=== PATIENT | female | born 1965 | race Caucasian/White ===

== ENCOUNTER → 2021-02-25 15:57 | Outpatient (CLI) | payer OTHER, SELFPAY ==
--- NOTE | 2021-02-25 16:10 | XR_ITS ---
PROCEDURE: XR ANKLE RT MIN 3V CLINICAL INDICATION: INJURY OF RT ANKLE,INITIAL ENCOUNTER COMPARISON: No exams were available for comparison FINDINGS: No fracture or dislocation. No lytic or blastic change. There is normal mineralization. The joint spaces are well-preserved. No significant degenerative/arthritic changes. No erosive changes evident. Other findings:There is a prominent os trigonum and a small calcaneal spur IMPRESSION: No acute findings. Dictated by: Jose Santana MD 02/25/2021 17:12 Jose Santana MD in [facility] 02/25/2021 17:12
== END ==
PROVIDERS: PCP Family Medicine; Visit Provider Family Medicine
DX: S99.911A Unspecified injury of right ankle, initial encounter (principal)
CPT/HCPCS: 73610

== ENCOUNTER 2021-04-09 11:28 | Outpatient (RCR) | payer OTHER, SELFPAY | END 2021-04-09 12:47 | disposition home or self-care (01) | LOC: PT 11:28 | PROVIDERS: Visit Provider Orthopaedic Surgery | DX: M25.371 Other instability, right ankle (principal); M20.11 Hallux valgus (acquired), right foot; M20.12 Hallux valgus (acquired), left foot | CPT/HCPCS: 97760 ==

== ENCOUNTER → 2021-05-07 10:02 | Outpatient (CLI) | payer OTHER, SELFPAY ==
--- NOTE | 2021-05-07 10:06 | XR_ITS ---
PROCEDURE: XR FOOT RT MIN 3V CLINICAL INDICATION: BL foot pain COMPARISON: CR XR FOOT LT MIN 3V from 05/07/2021 FINDINGS: Moderate hallux valgus with osteoarthritis of the 1st MTP joint and bunion formation at the distal aspect of the 1st metatarsal. Mild osteoarthritic change talonavicular and tarsal metatarsal junction dorsally at the 1st metatarsal. Small calcaneal spur. Prominent os trigonum versus prominent posterior talar process. IMPRESSION: Hallux valgus with osteoarthritis of the 1st MTP joint and bunion formation at the distal aspect of the 1st metatarsal.. Midfoot osteoarthritic change. Prominent os trigonum versus prominent posterior talar process Dictated by: Jose Santana MD 05/07/2021 17:40 Jose Santana MD in [facility] 05/07/2021 17:40
--- NOTE | 2021-05-07 10:06 | XR_ITS ---
PROCEDURE: XR FOOT LT MIN 3V CLINICAL INDICATION: BL foot injury COMPARISON: No exams were available for comparison FINDINGS: Moderate hallux valgus with mild lateral subluxation of 1st proximal phalanx proximally 3 mm. Prominent distal aspect of the 1st metatarsal with mild osteoarthritic changes at the 1st and 2nd MTP joint. Prominent anterior osteophytes at the 2nd tarsal metatarsal junction anteriorly. IMPRESSION: Hallux valgus with osteoarthritis of the 1st MTP joint and bunion formation at the distal aspect of the 1st metatarsal. Osteoarthritis 2nd MTP joint and 2nd tarsal metatarsal junction. Dictated by: Jose Santana MD 05/07/2021 17:38 Jose Santana MD in [facility] 05/07/2021 17:38
== END ==
LOC: RAD 10:04
PROVIDERS: PCP Family Medicine; Visit Provider Orthopaedic Surgery
DX: M20.11 Hallux valgus (acquired), right foot (principal); M20.12 Hallux valgus (acquired), left foot; M25.371 Other instability, right ankle
CPT/HCPCS: 73630

== ENCOUNTER 2021-05-07 11:31 | Outpatient (RCR) | payer OTHER, SELFPAY | END 2021-05-07 12:20 | disposition home or self-care (01) | LOC: PT 11:31 | PROVIDERS: Visit Provider Orthopaedic Surgery | DX: M25.371 Other instability, right ankle (principal); S99.911D Unspecified injury of right ankle, subsequent encounter | CPT/HCPCS: 97760 ==

== ENCOUNTER 2021-07-06 16:00 | Outpatient (RCR) | payer BC, OTHER, SELFPAY ==
--- NOTE | 2021-05-11 17:17 | [facility].PTOPEV ---
PT Outpatient Evaluation Rehab PT Outpatient Evaluation Start: 05/11/21 16:24 Freq: Status: Active Protocol: Document 05/11/21 16:24 CHRISTA (Rec: 05/11/21 17:17 [email or web address] [id number]) Electronically Signed By Sergio Mello, PT 05/11/21 16:24 Outpatient Therapy Subjective History Subjective History Pt. is a 55 year old female who presents to Outpatient Physical Therapy w/ c/o chronic and constant RLE medial/posterior ankle P!, TTP , ROM deficits, and muscle weakness of traumatic onset since 2020. Pt. reports descending stairs and a snake jumped out at her resulting in her turning her ankle. Recent diagnostic imaging negative for a fx. per pt. report. Pt. denies having injections for current pathology. Pt. reports symptoms worsen w/ moving her ankle, ambulation, standing, and negotiating stairs. Pt. reports having some symptom relief w/ Tylenol. Pt. reports she is off work until RTMD . Pt. also reports her MD wants her to be donned in her ankle brace at all times. Current medications include Tylenol. Pt. denies history of cancer(self), denies pacemaker. Chief Complaint Pain,Stiff,Swelling,Gives out/ Unstable,Weakness Symptom Type Ache,Throb,Sharp,Dull,Burning Symptoms Relieved By Rest/Positioning,Ice,Brace/ Support,OTC Meds Symptoms Aggravated By Standing,Physical Activity, Twisting,Walking,Lifting Prior Functional Limitations None Current Functional Limitations Lifting,Housework,Sleeping, Standing,Squatting,Recreation Activity,Walking,Stairs, Balance Symptom Description Constant but Variable Level of pain today (0-10) 5 Pain scale - at its best (0-10) 4 Pain scale - at its worst (0-10) 9 Ankle/Foot Eval Gait Observation General Gait Pattern Observation Antalgic Gait,Decrease Weight Bear (R),Decrease Stride Lngth
== END 2021-08-05 11:59 | disposition home or self-care (01) ==
LOC: PT 16:00
PROVIDERS: PCP Psychiatry & Neurology Sleep Medicine; Visit Provider Orthopaedic Surgery
DX: M25.371 Other instability, right ankle (principal)
CPT/HCPCS: 97010; 97014; 97033; 97035; 97110; 97112; 97163; 97164; G0283

== ENCOUNTER → 2021-11-04 16:33 | Outpatient (CLI) | payer BC, SELFPAY ==
--- NOTE | 2021-11-04 16:33 | MR_ITS ---
PROCEDURE INFORMATION: Exam: MR Right Lower Extremity Joint Without Contrast; Ankle Exam date and time: 11/04/2021 4:37 PM Age: 56 years old Clinical indication: Pain; Ankle; Right; Additional info: Ankle pain. M1suiohy ago patient fell and has had ankle swelling since. Medial sided ankle pain. TECHNIQUE: Imaging protocol: MR of the Right lower extremity without contrast. Exam focused on the ankle. COMPARISON: CR XR ANKLE RT MIN 3V 02/25/2021 4:11 PM FINDINGS: Bones and cartilage: Mild marrow edema/contusion is seen involving the anterior talus. No dislocation of the ankle. A cystic collection of fluid is identified dorsal to the talonavicular joint and lateral to the talus. This measures approximately 2.5 x 0.8 x 1.4 cm, likely representing a ganglion cyst. Mild degenerative spurring of the medial malleolus. Swelling is identified medial to the anterior talus. Abnormal signal intensity involves the tibionavicular portion of the deltoid ligament, likely due to prior trauma or partial tear. Prominence of the posterior talar process with suggested ossicle. A calcaneal spur is identified. Mild edema is seen adjacent to the proximal plantar fascia, suggestive of plantar fasciitis. Joint spaces: There is dorsal bowing of the talonavicular ligament with underlying fluid/effusion. Thickening and abnormal signal intensity are identified of the talonavicular ligament, with partial tear. Small tibiotalar and subtalar joint effusions. LIGAMENTS: Distal tibiofibular syndesmosis: Heterogeneous signal intensity of the anterior and posterior tibiofibular ligaments. Partial tear cannot be excluded. Anterior talofibular ligament: Edema is seen adjacent to the anterior talofibular ligament, consistent with ligament sprain or extension of adjacent soft tissue swelling. Posterior talofibular ligament: No visualized tear. Calcaneofibular ligament: No visualized tear. Deltoid ligament complex: Edema is seen adjacent to the deltoid ligament. Spring ligament complex: A small collection of fluid is identified within the spring ligament recess and expanding into the adjacent plantar soft tissues. TENDONS: Flexor tendons of foot: See Tibialis posterior tendon finding. Tibialis posterior tendon: Tenosynovitis of the posterior tibialis tendon. Mild tenosynovitis of the flexor digitorum and flexor hallucis tendons. Peroneal tendons: Unremarkable as visualized. Extensor tendons of foot: Unremarkable as visualized. Tibialis anterior tendon: Unremarkable as visualized. Achilles tendon: Unremarkable as visualized. Tarsal canal (Sinus tarsi): A small cystic collection of fluid is seen within the sinus tarsi. Edema is also noted within the sinus tarsi. Muscles: No visualized acute abnormality. Soft tissues: Soft tissue swelling is identified medial and and lateral to the ankle, with mild swelling of the foot. Plantar fascia: See Bones and cartilage finding. IMPRESSION: 1. Mild marrow edema/contusion is seen involving the anterior talus. 2. Soft tissue swelling is identified medial and and lateral to the ankle, with mild swelling of the foot. 3. Swelling is identified medial to the anterior talus. Abnormal signal intensity involves the tibionavicular portion of the deltoid ligament, likely due to prior trauma or partial tear. 4. Thickening and abnormal signal intensity are identified of the talonavicular ligament, with partial tear. 5. Edema is seen adjacent to the anterior talofibular ligament, consistent with ligament sprain or extension of adjacent soft tissue swelling. 6. Small tibiotalar and subtalar joint effusions. 7. Tenosynovitis of the posterior tibialis tendon
== END ==
PROVIDERS: PCP Family Medicine; Visit Provider Orthopaedic Surgery
DX: M20.11 Hallux valgus (acquired), right foot (principal); M25.371 Other instability, right ankle; M25.374 Other instability, right foot
CPT/HCPCS: 73721